=== PATIENT | female | born 1965 | race Caucasian/White ===

== ENCOUNTER 2016-09-24 03:50 | Emergency (ER) | payer BC ==
[~2016-09-24] VITALS: Ht 154.9 cm; Wt 52.2 kg
[2016-09-24 03:58] VITALS: BP 167/54
--- NOTE | 2016-09-24 04:25 | PHYS DOC ---
Past Medical History Past Medical History: Other Additional Past Medical Histor: tennis elbow Past Surgical History: Additional Past Surgical Histo: orthopedic knee Alcohol Use: Occasionally Drug Use: None Adult General Chief Complaint Chief Complaint: GENERALIZED BODY ACHES HPI HPI This is a 50-year-old female who presents she's having diffuse myalgias that have worsened over the last several days that have been present on and off for the last week patient does state that she had recent exposure to influenza and her sister who had similar type symptoms. She denies any nausea or vomiting. She does states she's had some mild diarrhea with her symptoms. She denies any history of health problems. She rates her pain a 6/10 on the pain scale. Review of Systems Review of Systems Constitutional: Denies fever or chills [] Eyes: Denies change in visual acuity, redness, or eye pain [] HENT: Denies nasal congestion or sore throat [] Respiratory: Denies cough or shortness of breath [] Cardiovascular: No additional information not addressed in HPI [] GI: Denies abdominal pain, nausea, vomiting, bloody stools or diarrhea [] : Denies dysuria or hematuria [] Musculoskeletal: Denies back pain, has joint pain [] Integument: Denies rash or skin lesions [] Neurologic: Denies headache, focal weakness or sensory changes [] Endocrine: Denies polyuria or polydipsia [] Current Medications Current Medications Current Medications Medications (Trade) Dose Ordered Sig/[facility] Start Time Stop Time Status Last Admin Dose Admin Ketorolac Tromethamine (Toradol Im) 60 mg 1X ONCE 09/24/16 04:45 09/24/16 04:46 DC 09/24/16 04:55 60 MG Allergies Allergies Allergies Coded Allergies Type Severity Reaction Last Updated Verified venom-honey bee Allergy Intermediate 05/01/16 Yes venom-wasp Allergy Intermediate 05/01/16 Yes Physical Exam Physical Exam Constitutional: Well developed, well nourished, no acute distress, non-toxic appearance. [] HENT: Normocephalic, atraumatic, bilateral external ears normal, oropharynx moist, no oral exudates, nose normal. [] Eyes: PERRLA, EOMI, conjunctiva normal, no discharge. [] Neck: Normal range of motion, no tenderness, supple, no stridor. [] Cardiovascular:Heart rate regular rhythm, no murmur [] Lungs & Thorax: Bilateral breath sounds clear to auscultation [] Abdomen: Bowel sounds normal, soft, no tenderness, no masses, no pulsatile masses. [] Skin: Warm, dry, no erythema, no rash. [] Back: No tenderness, no CVA tenderness. [] Extremities: No tenderness, no cyanosis, no clubbing, ROM intact, no edema. [] Neurologic: Alert and oriented X 3, normal motor function, normal sensory function, no focal deficits noted. [] Psychologic: Affect normal, judgement normal, mood normal. [] Current Patient Data Vital Signs Vital Signs Date Time Temp Pulse Resp B/P Pulse Ox O2 Delivery O2 Flow Rate FiO2 09/24/16 03:58 97.4 97 20 100 Room Air 97.4 Lab Values Laboratory Tests Test 09/24/16 04:00 Influenza Type A Antigen Negative (NEGATIVE) Influenza Type B Antigen Negative (NEGATIVE) EKG EKG [] Radiology/Procedures Radiology/Procedures [] Course & Med Decision Making Course & Med Decision Making Pertinent Labs and Imaging studies reviewed. (See chart for details) This otherwise healthy 50-year-old female comes in with diffuse myalgias and will be tested with influenza rapid A and B panel. She has no systemic features other than diffuse myalgias for any illness. I do not see indication to do any IV or lab work at this time. I will administer an IM injection of Toradol and if her influenza panel is negative she will be discharged home to continue taking high-dose Motrin and continue fluids for her symptoms as I believe they are likely viral in etiology. Upon my reassessment, the patient does feel improved after Toradol injection. Her influenza panels were negative. There is no indication at this time to do any other laboratory testing. She'll be discharged home with strict instructions continue to take Motrin for her myalgias and to continue to stay well-hydrated with plenty of fluids and to follow closely with her primary care doctor for symptom resolution and to return if she develops any worsening of her symptoms or new symptoms such as fever, nausea, vomiting, chest pain or shortness of breath. Dragon Disclaimer Dragon Disclaimer This electronic medical record was generated, in whole or in part, using a voice recognition dictation system. Departure Departure Impression: Primary Impression: Myalgia Disposition: HOME, SELF-CARE Condition: STABLE Referrals: NO PCP (PCP) Patient Instructions: Myalgia, Adult Additional Instructions: Please continue to take Motrin every 6 hours for your pain. Continue to drink plenty of fluids and follow closely with your primary doctor in the next 2-3 days for your symptoms. Return to the ER if you develop any worsening of your symptoms or develop any new symptoms such as nausea, vomiting, chest pain, or shortness of breath. FELIBERTO BELTRAN DO Sep 24, 2016 04:25
[2016-09-24] MEDS ORDERED: KETOROLAC TROMETHAMINE 60 MG/2 ML SYRINGE. IM ONE (04:45)
[2016-09-24 05:01] LABS: OBC FLU VALID
== END 2016-09-24 05:12 | disposition home or self-care (01) ==
LOC: ER 03:50
DX: M79.1 Myalgia (principal); Z91.030 Bee allergy status
CPT/HCPCS: 87804; 96372; 99284; J1885